=== PATIENT | male | born 1985 | race Caucasian/White ===

== ENCOUNTER → 2018-09-08 | Outpatient (CLI) | payer OTHER ==
[2018-09-08 09:26] LABS: HEMATOCRIT 49.5 % (42.0-52.0); HEMOGLOBIN 16.9 g/dl (14.0-18.0); MEAN CELL VOLUME 88.1 fl (80.0-94.0); MEAN CORPUSCULAR HGB 30.1 pg (27.0-31.0); MEAN CORPUSCULAR HGB CONC 34.1 g/dl (33.0-37.0); MEAN PLATELET VOLUME 10.9 fl (9.6-12.3); RED BLOOD COUNT 5.62 10*6/uL (4.50-5.90); RED CELL DISTRI WIDTH 11.7 % (0-14.5)
[2018-09-08 09:29] LABS: ALBUMIN 3.8 gm/dl (3.1-4.5); ALKALINE PHOSPHATASE 61 U/L (45-117); BUN 20 mg/dl (7-24); CHLORIDE 105 mmol/L (98-107); CHOLESTEROL 117 mg/dL (<200); CREATININE 1.11 mg/dL (0.70-1.30); FREE T4 0.75 ng/dl (0.76-1.46); HDL CHOLESTEROL 61 mg/dl (40-60); IRON 115 ug/dL (65-175); LDL CHOLESTEROL 43 mg/dL (9-159); POTASSIUM 4.8 mmol/L (3.5-5.1); SGOT/AST 22 IU/L (3-35); SGPT/ALT 32 U/L (12-78); SODIUM 140 mmol/L (136-145); TOTAL IRON BINDING CAPACITY 357 ug/dl (250-450); TOTAL PROTEIN 7.4 gm/dL (6.4-8.2); TRIGLYCERIDES 63 mg/dl (<150); VLDL CHOLESTEROL 13 mg/dL (6-40)
== END | disposition home or self-care (01) ==
LOC: LAB 08:43
PROVIDERS: Internal Medicine
DX: Z13.29 Encounter for screening for other suspected endocrine disorder (principal); Z13.220 Encounter for screening for lipoid disorders; R53.83 Other fatigue; E16.2 Hypoglycemia, unspecified

== ENCOUNTER 2019-07-04 15:51 | Emergency (ER) | payer OTHER ==
[~2019-07-04] VITALS: Ht 175.2 cm; Wt 86.2 kg
[2019-07-04] MEDS ORDERED: ACULAR 5 ML5 M1 OPH (16:28)
[2019-07-04] MEDS ORDERED: Tobrex Ophth S2.5 ML OPH (16:28)
== END 2019-07-04 16:43 | disposition home or self-care (01) ==
LOC: ED 15:51
DX: H00.025 Hordeolum internum left lower eyelid (principal); H18.892 Other specified disorders of cornea, left eye